=== PATIENT | male | born 1960 | race Caucasian/White ===

== ENCOUNTER 2017-03-26 13:13 | Emergency (ER) | payer OTHER ==
[~2017-03-26] VITALS: Ht 200.7 cm; Wt 103.2 kg
[2017-03-26 17:19] VITALS: BP 114/86
== END 2017-03-26 17:24 | disposition home or self-care (01) ==
LOC: EME 13:13
PROC: 0V9SXZZ Drainage of Penis, External Approach (ICD-10-PCS; principal; 2017-03-26)
DX: N48.30 Priapism, unspecified (principal); R42 Dizziness and giddiness; Z87.891 Personal history of nicotine dependence
CPT/HCPCS: 99281; 99285

== ENCOUNTER 2017-08-10 16:39 | Emergency (ER) | payer OTHER ==
[~2017-08-10] VITALS: Ht 200.7 cm; Wt 109.0 kg
[2017-08-10 16:41] VITALS: BP 125/85
[2017-08-10 17:03] LABS: HEMATOCRIT 47.1 % (38.0-50.0); HEMOGLOBIN 16.5 G/DL (12.5-16.6); MCH 31.2 PG (29.0-34.0); PLATELET COUNT 157 K/uL (156-360); RBC DIS.WIDTH-CV 11.9 % (11.8-14.6); RBC DIS.WIDTH-SD 38.9 % (39-53); RED BLOOD COUNT 5.29 M/uL (4.00-5.50)
[2017-08-10 17:12] LABS: CHLORIDE 108 mEq/L (99-109); POTASSIUM 4.1 mEq/L (3.7-5.4); SODIUM 145 mEq/L (136-147)
[2017-08-10 17:13] LABS: GLUCOSE 99 mg/dL (70-99)
[2017-08-10 17:17] LABS: CREATININE 0.9 mg/dL (0.6-1.3); GFR ESTIMATE (CALCULATED) > 59 mL/min/ (58.99-99999); SERUM ETHYL ALCOHOL 183 mg/dL
[2017-08-10 17:18] LABS: UREA NITROGEN (BUN) 16 mg/dL (9-23)
== END 2017-08-10 18:17 | disposition left against medical advice (07) ==
LOC: EME 16:39
DX: R45.851 Suicidal ideations (principal); Z53.21 Procedure and treatment not carried out due to patient leaving prior to being seen by health care provider
CPT/HCPCS: 80048; 85027; 99281; 99284; G0480

== ENCOUNTER 2018-03-07 06:55 | Inpatient (IN) | payer OTHER ==
[~2018-03-07] VITALS: Ht 200.7 cm; Wt 107.3 kg
[2018-03-07 07:24] LABS: HEMATOCRIT 44.1 % (38.0-50.0); HEMOGLOBIN 15.2 G/DL (12.5-16.6); MCH 31.1 PG (29.0-34.0); MCHC 34.5 G/DL (30.0-36.0); MCV 90.4 FL (86-99); PLATELET COUNT 119 K/uL (156-360); RBC DIS.WIDTH-CV 12.3 % (11.8-14.6); RBC DIS.WIDTH-SD 39.8 % (39-53); RED BLOOD COUNT 4.88 M/uL (4.00-5.50)
[2018-03-07 07:49] LABS: CHLORIDE 104 MEQ/L (99-109); POTASSIUM 4.1 MEQ/L (3.7-5.4); SODIUM 141 MEQ/L (136-147); TROP-I INTERPRETATION NEGATIVE; TROPONIN-I 0.06 ng/mL (0.0-0.30)
[2018-03-07 07:55] LABS: CREATININE 1.1 MG/DL (0.6-1.3); GFR ESTIMATE (CALCULATED) > 59 mL/min/ (58.99-99999); GLUCOSE 107 mg/dL (70-99); UREA NITROGEN (BUN) 17 mg/dL (9-23)
[2018-03-07 09:17] VITALS: BP 131/92
[2018-03-07 11:46] VITALS: BP 134/89
[2018-03-07] MEDS ORDERED: CENTRUM COMPLE1 EACH PO (12:29)
[2018-03-07] MEDS ORDERED: DIVALPROEX SOD250 MG PO (12:29)
[2018-03-07] MEDS ORDERED: ALEVE220 MG PO (12:30)
[2018-03-07 14:39] LABS: TROP-I INTERPRETATION NEGATIVE; TROPONIN-I 0.05 ng/mL (0.0-0.30)
[2018-03-07 15:24] VITALS: BP 116/86
[2018-03-07 19:08] VITALS: BP 136/98
[2018-03-07 20:19] LABS: TROP-I INTERPRETATION NEGATIVE; TROPONIN-I 0.03 ng/mL (0.0-0.30)
[2018-03-08] VITALS: BP 134/87
[2018-03-08 03:56] VITALS: BP 125/88
[2018-03-08 05:26] LABS: HEMATOCRIT 41.7 % (38.0-50.0); HEMOGLOBIN 14.2 G/DL (12.5-16.6); MCH 31.1 PG (29.0-34.0); MCHC 34.1 G/DL (30.0-36.0); MCV 91.4 FL (86-99); PLATELET COUNT 130 K/uL (156-360); RBC DIS.WIDTH-CV 12.7 % (11.8-14.6); RBC DIS.WIDTH-SD 41.1 % (39-53); RED BLOOD COUNT 4.56 M/uL (4.00-5.50); WHITE BLOOD COUNT 7.9 K/uL (4.1-10.2)
[2018-03-08 06:05] LABS: HDL CHOLESTEROL 31 MG/DL (Desirable>=40); LDL CHOLESTEROL 131 mg/dL (Desirable<100); NON-HDL CHOLESTEROL 164 mg/dL (Desirable<160); TOTAL CHOLESTEROL 195 mg/dL (Desirable<200); TRIGLYCERIDES 164 MG/DL (Normal: <150)
[2018-03-08 07:20] VITALS: BP 122/79
[2018-03-08 08:56] LABS: THYROTROPIN (TSH) 5.1 MIU/L (0.4-5.5)
[2018-03-08 11:09] VITALS: BP 127/71
[2018-03-08 15:44] VITALS: BP 136/84
[2018-03-08 19:32] VITALS: BP 139/79
[2018-03-09 00:07] VITALS: BP 134/67
[2018-03-09 03:41] VITALS: BP 142/73
[2018-03-09 07:35] VITALS: BP 127/76
[2018-03-09] MEDS ORDERED: ASPIR-LOW81 MG PO (11:22)
[2018-03-09] MEDS ORDERED: ATORVASTATIN CA40 MG PO (11:22)
[2018-03-09] MEDS ORDERED: LOPRESSOR25 MG PO (11:22)
[2018-03-09] MEDS ORDERED: XARELTO20 MG PO (11:23)
[2018-03-09] MEDS ORDERED: XARELTO15 MG PO (11:23)
== END 2018-03-09 12:54 | disposition home or self-care (01) | DRG 176 ==
LOC: EME 06:55 → ENRESERV 08:29 → EDOF 08:32 → 4SOUTH 09:01
PROVIDERS: Hospitalist; Internal Medicine Cardiovascular Disease; Nurse Practitioner Family
DX: I26.99 Other pulmonary embolism without acute cor pulmonale (principal); I82.421 Acute embolism and thrombosis of right iliac vein; I82.411 Acute embolism and thrombosis of right femoral vein; I82.811 Embolism and thrombosis of superficial veins of right lower extremity; I11.9 Hypertensive heart disease without heart failure; I49.3 Ventricular premature depolarization; R91.1 Solitary pulmonary nodule; R09.02 Hypoxemia; I27.20 Pulmonary hypertension, unspecified; I08.1 Rheumatic disorders of both mitral and tricuspid valves; D69.6 Thrombocytopenia, unspecified; E78.5 Hyperlipidemia, unspecified; G43.909 Migraine, unspecified, not intractable, without status migrainosus; G47.00 Insomnia, unspecified; M19.90 Unspecified osteoarthritis, unspecified site; S30.1XXS Contusion of abdominal wall, sequela; F32.9 Major depressive disorder, single episode, unspecified; F10.20 Alcohol dependence, uncomplicated; Z87.891 Personal history of nicotine dependence; Z88.5 Allergy status to narcotic agent; Z82.49 Family history of ischemic heart disease and other diseases of the circulatory system
CPT/HCPCS: 71046; 71275; 80048; 80061; 83880; 84443; 84484; 85027; 85379; 93005; 93306; 93970; 94799; 99281; 99285; G0378; J1644; J1650; J7030